=== PATIENT | male | born 1970 | race Caucasian/White ===

== ENCOUNTER 2017-11-28 12:33 | Inpatient (IN) | payer OTHER ==
[~2017-11-28] VITALS: Ht 175.3 cm; Wt 81.6 kg
[2017-12-03] MEDS ORDERED: ULTRACET PO (17:45)
[2017-12-03] MEDS ORDERED: FLAGYL500MG PO (17:45)
[2017-12-03] MEDS ORDERED: CIPRO500 MG PO (17:45)
== END 2017-12-03 17:55 | disposition home or self-care (01) | DRG 394 ==
LOC: SEC-K 12:33 → SURG 12:33
PROC: BW3GY0Z Magnetic Resonance Imaging (MRI) of Pelvic Region using Other Contrast, Unenhanced and Enhanced (ICD-10-PCS; principal; 2017-11-29)
DX: K61.0 Anal abscess (principal); L03.315 Cellulitis of perineum; E10.22 Type 1 diabetes mellitus with diabetic chronic kidney disease; E10.65 Type 1 diabetes mellitus with hyperglycemia; I13.10 Hypertensive heart and chronic kidney disease without heart failure, with stage 1 through stage 4 chronic kidney disease, or unspecified chronic kidney disease; N18.2 Chronic kidney disease, stage 2 (mild); D63.1 Anemia in chronic kidney disease
CPT/HCPCS: 72196

== ENCOUNTER 2017-12-07 12:09 | Emergency (ER) | payer OTHER ==
[~2017-12-07] VITALS: Ht 175.3 cm; Wt 81.6 kg
[~2017-12-07 12:09] MED LIST: CIPRO500 MG PO; FLAGYL500MG PO; ULTRACET PO
[2017-12-07] MEDS ORDERED: HUMULIN 70100 UNIT/1 (13:14)
[2017-12-07] MEDS ORDERED: TOPROL XL50 M1 (13:14)
== END 2017-12-07 17:13 | disposition home or self-care (01) ==
LOC: ER 12:09
DX: G51.0 Bell's palsy (principal)

== ENCOUNTER 2018-10-14 15:05 | Emergency (ER) | payer OTHER ==
[~2018-10-14] VITALS: Ht 175.3 cm; Wt 81.6 kg
[~2018-10-14 15:05] MED LIST changes: +HUMULIN 70100 UNIT/1; +TOPROL XL50 M1
== END 2018-10-14 21:44 | disposition home or self-care (01) ==
LOC: ER 15:05
DX: R10.32 Left lower quadrant pain (principal); M54.5 Low back pain